=== PATIENT | female | born 1965 | race Caucasian/White ===

== ENCOUNTER → 2016-11-10 | Outpatient (CLI) | payer OTHER ==
--- NOTE | 2016-11-14 09:48 | Diagnostic Imaging Report ---
INDICATION: Irregular heartbeat. 2 views. AVAILABLE COMPARISONS: 09/08/2013. Thoracic scoliosis is present similar to the prior exam. The cardiomediastinal silhouette and pulmonary vascularity are normal. No pleural effusion or alveolar infiltrate is identified. No mass is identified. An azygos lobe is present. IMPRESSION: Scoliosis. No acute abnormality or significant change from comparison study. Dictated by: Dictated on workstation # [id number]
== END ==
LOC: RAD 12:22
PROVIDERS: ATTEND Family Medicine
DX: I49.8 Other specified cardiac arrhythmias (principal); M41.84 Other forms of scoliosis, thoracic region
CPT/HCPCS: 71020; 93005